=== PATIENT | female | born 1995 | race Hispanic/Latino ===

== ENCOUNTER 2021-04-15 20:12 | Outpatient (CLI) | payer OTHER, SELFPAY ==
[2021-04-15 21:45] VITALS: PULSE 98; O2SAT 100
[2021-04-15 21:47] VITALS: BP 106/60; PULSE 95; TEMP 36.9
[2021-04-15 22:22] LABS: ROM Internal Control Test YES-OK TO RESULT pt. (Internal QC); ROM Patient Test Negative (Negative)
[2021-04-15 23:25] LABS: Color, Urine Yellow (Yellow); Glucose, Dipstick Normal (Normal); Ketone-Dipstick Negative (Negative); Leukocyte Esterase-Dipstick 500 /ul (Negative); Nitrite-Dipstick Negative (Negative); Occult Blood-Urine 10 /ul (Negative); Protein-Dipstick Negative (Negative); Urine Bilirubin Dipstick Negative (Negative); Urine Clarity Cloudy (Clear); Urine Urobilinogen Normal (Normal); Urine pH 6.5 (5.0 - 8.0)
[2021-04-15 23:30] VITALS: BMI 22.0
--- NOTE | 2021-04-15 23:53 | OB.TRI.NOTE ---
HPI - General HPI Narrative NOHEMYKRISTEN VILLAGOMEZ, is a 26 F who presents with c/o leaking of fluid PFSH PFSH Home Medications ferrous sulfate 325 mg PO BID 04/15/21 [History Last Taken Unknown] [id number] [] 1 tab PO DAILY 04/15/21 [History Last Taken Unknown] Allergy/AdvReac Type Severity Reaction Status Date / Time No Known Allergies Allergy Verified 04/15/21 22:05 NST FHR Rate Baby A Baseline: 145 Variability:: Moderate Accelerations:: 15 x 15 Decelerations:: None NST Reactive:: Yes FHR Category:: Category I Uterine Activity:: 0/10 Assessment & Plan (1) : QUALIFIERS: Weeks of gestation: 29 weeks Qualified Code(s): Z3A.29 - 29 weeks gestation of PLAN: 29.6 wga by stated VIMAL 06/25/21 ROM plus negative No evidence of labor d/c home
== END 2021-04-15 23:15 | disposition home or self-care (01) ==
LOC: WPOUT 21:31 → WP 22:12
PROVIDERS: Visit Provider Obstetrics & Gynecology
DX: O47.03 False labor before 37 completed weeks of gestation, third trimester (principal); Z3A.29 29 weeks gestation of pregnancy
CPT/HCPCS: 59025; 59050; 81002; 84112; 87086; 87088; 99218; G0378

== ENCOUNTER 2021-04-21 20:31 | Observation (INO) | payer MEDICAID, SELFPAY ==
[2021-04-21] VITALS (7 sets, daily range): BP systolic 95–100; BP diastolic 53–66; PULSE 83–113; TEMP 36.7–37; O2SAT 97–100; BMI 26.3
[2021-04-21 14:56] LABS: ROM Internal Control Test YES-OK TO RESULT pt. (Internal QC); ROM Patient Test Negative (Negative)
[2021-04-21 15:52] LABS: Absolute Lymphocyte Count 1.58 X10^3/uL (0.83-4.51); Absolute Neutrophil Count 11.4 X10^3/uL (2.0-7.7); Basophil# 0.03 X10^3/uL; Basophil% 0.2 % (0-1); Eosinophil# 0.24 X10^3/uL; Eosinophils% 1.7 % (0-5); Hematocrit 32.1 % (37-47); Hemoglobin 10.6 g/dL (12.0-15.0); Lymphocyte # 1.58 X10^3/ul (0.83-4.51); Lymphocyte % 10.9 % (19-41); Mean Corpuscular Hgb 27.2 pg (27.0-32.0); Mean Corpuscular Volume 82.3 fL (81-99); Mean Platelet Vol. 10.2 fl (6.2-12.0); Monocyte# 1.21 X10^3/uL; Monocyte% 8.3 % (0-10); NRBC Flagged by Analyzer 0 % (0-5); Neutrophil # 11.35 X10^3/uL (2.7-7.7); Neutrophil % 78.1 % (47-70); Platelet Count 270 K/mm3 (150-450); RBC Distribution Width CV 12.9 % (11.6-14.6); RBC Distribution Width SD 38.1 fl (35.1-43.9); White Blood Count 14.5 K/mm3 (4.4-11.0)
[2021-04-21 15:53] LABS: Color, Urine Yellow (Yellow); Glucose, Dipstick Normal (Normal); Ketone-Dipstick Negative (Negative); Leukocyte Esterase-Dipstick 500 /ul (Negative); Nitrite-Dipstick Negative (Negative); Occult Blood-Urine 250 /ul (Negative); Protein-Dipstick 100 mg/dl (Negative); Specific Gravity, Urine 1.015 (1.002-1.030); Urine Bilirubin Dipstick Negative (Negative); Urine Clarity Turbid (Clear); Urine Urobilinogen Normal (Normal)
[2021-04-21] MEDS: Acetaminophen 500 MG Tablet 1000 MG PO (15:56)
[2021-04-21 16:13] LABS: ALB/GLOB Ratio 0.6 RATIO (0.9-2.4); AST(SGOT) 127 U/L (15-37); Alanine Aminotransfer ALT/SGPT 243 U/L (13-56); Albumin, Serum 2.8 g/dL (3.2-5.0); Alkaline Phosphatase 183 U/L (45-117); Anion Gap 8 (5-15); BUN 7 mg/dL (7-18); BUN/Creat Ratio 19.5 RATIO (10-20); Calcium,Total 8.9 mg/dL (8.5-10.1); Chloride 105 mmol/L (98-107); Creatinine, Serum 0.36 mg/dL (0.55-1.02); EST Glomerular Filtration Rate 236 mL/min (>60); Est Glom Filt Rate - Afr Amer 285 mL/min (>60); Estimated Creatinine Clearance 225.58 ml/min; Globulin 4.4 g/dL (2.2-4.2); Glucose 81 mg/dL (74-106); Potassium 3.7 mmol/L (3.5-5.1); Protein, Total 7.2 g/dL (6.4-8.2); Sodium Level 136 mmol/L (136-145)
--- NOTE | 2021-04-21 16:46 | US_ITS ---
STUDY: SECOND AND THIRD TRIMESTER OBSTETRICAL ULTRASOUND - LIMITED REASON FOR EXAM: Female, 26 years old 30.5 WEEKS GESTATION RT FLANK PAIN -- GROWTH AND ANATOMY -per iban, RN no anatomy LMP: 09/18/2020. PRIOR ULTRASOUND: None. TECHNIQUE: Transabdominal. TECHNICAL QUALITY: Adequate. FINDINGS: There is a single intrauterine fetus. The fetus is in a breech presentation. There is demonstrated cardiac activity with a heart rate of 137 bpm. There is a normal amniotic fluid volume. The largest amniotic fluid pocket measures 5.4 cm. The amniotic fluid index (UMU) is .9 cm. The placenta is fundal and posterior. The cervix measures 2.8 cm in length. 3 vessel cord is documented. BIOMETRY: biometry demonstrates biparietal diameter corresponding to estimated gestational age of 35 weeks 2 days, head circumference corresponding to 32 weeks 6 days, abdominal circumference to 30 weeks 5 days, and femur length to 31 weeks 4 days. Mean sonographic estimated gestational age is 32 weeks 4 days with estimated date of delivery 06/12/2021. Estimated weight: 1837 grams, +/- 276 grams. US/OB Limited With Biometrics IMPRESSION: Single live intrauterine gestation with EGA 32 weeks 4 days. Electronically Signed: Jovanna Nguyen MD at 21:20 EDT Tel , Service support ,
[2021-04-21 16:55] LABS: AST(SGOT) 128 U/L (15-37); Alanine Aminotransfer ALT/SGPT 238 U/L (13-56); Albumin, Serum 2.8 g/dL (3.2-5.0); Alkaline Phosphatase 184 U/L (45-117); Amylase 45 U/L (25-115); Globulin 4.5 g/dL (2.2-4.2); LDH 203 U/L (84-246); Lipase 97 U/L (73-393); Protein, Total 7.3 g/dL (6.4-8.2); Uric Acid 2.6 mg/dL (2.6-6.0)
--- NOTE | 2021-04-21 17:25 | US_ITS ---
STUDY: ABDOMINAL ULTRASOUND - RIGHT UPPER QUADRANT REASON FOR VISIT: Female, 26 years old RIGHT FLANK PAIN -- 30.5 WEEKS GESTATION -- elevated liver enzymes TECHNIQUE: Ultrasound evaluation of the right upper quadrant was performed with real-time and static ag-scale imaging. TECHNICAL QUALITY: Adequate. COMPARISON: None. FINDINGS: Liver: The liver measures 15.7 cm. There is normal echogenicity of the liver. The bile ducts are within normal limits. There is hepatic color flow. The direction of portal flow is hepatopetal. There is no demonstrated mass lesion. Gallbladder: Distended gallbladder. The gallbladder wall measures 2 mm. There is a negative sonographic Rodriguez''s sign. There is no pericholecystic fluid. There is biliary sludge within the gallbladder. Common Bile Duct (C.B.D.): The common bile duct measures 4 mm. Pancreas: Normal size of the head, body and tail of the pancreas. There is normal echogenicity of the pancreas. There is no demonstrated pancreatic mass or cyst. Right Kidney: Normal size of the right kidney. The right kidney measures 11 x 5.1 x 6.1 cm. Normal renal cortex. The right cortex measures 1 cm. There is no demonstrated renal mass or cyst. There is moderate hydronephrosis of the right kidney. US/Abdomen Limited IMPRESSION: 1. Biliary sludge. No evidence of acute cholecystitis. 2. Right hydronephrosis, consistent with third trimester gestation. However, a distal stone cannot be excluded. Electronically Signed: Jovanna Nguyen MD at 21:23 EDT Tel , Service support ,
--- NOTE | 2021-04-21 20:33 | HP.PCM.OB_ITS ---
HPI - General HPI Narrative NOHEMYKRISTEN VILLAGOMEZ, is a 26 F who presents with right sided abdominal & back pain. It started 5 days ago and became worse today which prompted her visit. The pain is intermittent. Patient also reports some nausea with emesis x2. Overall she is tolerating PO. Denies VB/LOF/ctxs. Reports good FM. Maternal Data Information Final VIMAL: 06/25/21 Gestational age: 30&5 PFSH PFSH Home Medications ferrous sulfate 325 mg PO BID 04/15/21 [History Last Taken Unknown] [id number] [] 1 tab PO DAILY 04/15/21 [History Last Taken Unknown] Allergy/AdvReac Type Severity Reaction Status Date / Time No Known Allergies Allergy Verified 04/15/21 22:05 History Addt'l History: care in [facility] NST FHR Rate Baby A Baseline: 145 Variability:: Moderate Accelerations:: 15 x 15 Decelerations:: Variable Uterine Activity:: Irregular Vital Signs Vital Signs Vital Signs: 04/21/21 14:54 04/21/21 14:55 04/21/21 16:11 Temperature 98.1 F 98.0 F Temperature Source Temporal Pulse Rate 113 H 89 Blood Pressure 100/66 99/63 BP Systolic 100 99 BP Diastolic 66 63 Pulse Ox 100 04/21/21 19:45 04/21/21 19:46 Temperature 98.1 F Temperature Source Temporal Pulse Rate 88 Blood Pressure 97/54 L BP Systolic 97 BP Diastolic 54 Pulse Ox 100 Weight Weight: 130 lb 11.746 oz Body Mass Index (BMI) 26.3 Physical Exam Const alert, oriented x3 and no apparent distress HEENT normocephalic Head and Scalp: atraumatic Eyes PERRL Chest inspection of chest normal and palpation of chest normal Resp normal respiratory effort GI soft to palpation, non-tender and non-distended Back/Spine no CVA tenderness Back/Spine Narrative: patient points to mid right back as area that can be painful Labs Labs Labs: Hct 32.1 % (37-47) L Hgb 10.6 g/dL (12.0-15.0) L Obstetrics US Assessment & Plan (1) Abdominal pain affecting : COMMENT: @ 30&5 PLAN: Abdominal pain - preliminary RUQ US read shows gallbladder sludge - await final read. Gallbladder disease could explain the elevated LFT's. LFT's - plan to repeat in am. BP normal. Platelets & LDH normal thus no evidence of HELLP. FWB - reassuring EFM and normal US on prelim report. Plan for overnight observation and repeat evaluation in the morning. Plan of care discussed with patient & all questions answered.
[2021-04-21] MEDS: Acetaminophen 325 MG Tablet 650 MG PO (23:43)
--- NOTE | 2021-04-22 01:49 | NURSING ---
pt resting in bed, woke up after hearing RN enter room, states doing okay at this time.
[2021-04-22 04:03] VITALS: BP 88/50; PULSE 93; TEMP 36.8; O2SAT 99
--- NOTE | 2021-04-22 06:09 | PN.OBGYN_ITS ---
Subjective Subjective Doing well this morning, decreased pain. Good movement. Denies headache, visual changes, chest pain, shortness of breath, vaginal bleeding or leakage of fluid. Objective Data Objective Data Vital Signs: Vital Signs Temp Pulse BP Pulse Ox 98.2 F 93 88/50 L 99 04/22/21 04:03 04/22/21 04:03 04/22/21 04:03 04/22/21 04:03 Weight: 130 lb 11.746 oz Body Mass Index (BMI) 26.3 Lab / Micro Data Result Diagrams: 04/21/21 15:40 04/21/21 15:40 Labs: Laboratory Results - last 24 hr 04/21/21 14:30: Vag Amniotic Fld Detect Negative 04/21/21 15:30: Urine Color Yellow, Urine Clarity Turbid, Urine pH 7.0, Ur Speci fic [place]ike 1.015, Urine Protein 100 H, Urine Glucose (UA) Normal, Urine Ketones Negative, Urine Occult Blood 250 H, Urine Nitrite Negative, Urine Bilirubin Negative, Urine Urobilinogen Normal, Ur Leukocyte Esterase 500 H 04/21/21 15:40: WBC 14.5 H, RBC 3.90 L, Hgb 10.6 L, Hct 32.1 L, MCV 82.3, MCH 27.2, MCHC 33.0, RDW Std Deviation 38.1, RDW Coeff of Lynsey 12.9, Plt Count 270, MPV 10.2, Immature Gran % (Auto) 0.800, Neut % (Auto) 78.1 H, Lymph % (Auto) 10.9 L, Hickman % (Auto) 8.3, Eos % (Auto) 1.7, Baso % (Auto) 0.2, Absolute Neuts (auto) 11.4 H, Absolute Lymphs (auto) 1.58, Nucleated RBC % 0 04/21/21 15:40: Sodium 136, Potassium 3.7, Chloride 105, Carbon Dioxide 23.0, Anion Gap 8, BUN 7, Creatinine 0.36 L, Estim Creat Clear Calc 225.58, Est GFR (MDRD) Af Amer 285, Est GFR (MDRD) Non-Af 236, BUN/Creatinine Ratio 19.5, Glucose 81, Calcium 8.9, Total Bilirubin 0.40, AST 127 H, ALT 243 H, Alkaline Phosphatase 183 H, Total Protein 7.2, Albumin 2.8 L, Globulin 4.4 H, Albumin/Globulin Ratio 0.6 L 04/21/21 15:40: Uric Acid 2.6, Total Bilirubin 0.40, Direct Bilirubin 0.20, AST 128 H, ALT 238 H, Alkaline Phosphatase 184 H, Lactate Dehydrogenase 203, Total Protein 7.3, Albumin 2.8 L, Globulin 4.5 H, Amylase 45, Lipase 97 Radiography Diagnostic Testing: Radiology Impression Obstetrics Ultrasound 04/21/21 16:46 IMPRESSION: Single live intrauterine gestation with EGA 32 weeks 4 days. Electronically Signed: Jovanna Nguyen MD at 21:20 EDT Tel , Service support , Abdomen Ultrasound 04/21/21 17:25 IMPRESSION: 1. Biliary sludge. No evidence of acute cholecystitis. 2. Right hydronephrosis, consistent with third trimester gestation. However, a distal stone cannot be excluded. Electronically Signed: Jovanna Nguyen MD at 21:23 EDT Tel , Service support , ROS Constitutional Constitutional: Reports systems reviewed and no addt'l complaints, except as documented; Denies headache(s) Eyes Eyes: Denies acute decrease in peripheral vision, blurry vision or change in vision ENT HEENT: Reports systems reviewed and no addt'l complaints, except as documented Cardiovascular Cardiovascular: Denies chest pain or dizziness Respiratory/Chest Respiratory/Chest: Denies cough, dyspnea, dyspnea on exertion, shortness of breath at rest or shortness of breath with exertion Gastrointestinal Gastrointestinal: Denies abdominal pain, diarrhea, nausea or vomiting Genitourinary Genitourinary: Denies abdominal discomfort or movement Musculoskeletal Musculoskeletal: Denies limited range of motion Integumentary Integumentary: Reports systems reviewed and no addt'l complaints, except as documented Neurologic Neurologic: Reports systems reviewed and no addt'l complaints, except as documented Psychiatric Psychiatric: Reports systems reviewed and no addt'l complaints, except as documented Endocrine Endocrinology: Reports systems reviewed and no addt'l complaints, except as documented Hematologic/Lymphatic Hematologic/Lymphatic: Reports systems reviewed and no addt'l complaints, except as documented Allergic/Immunologic Allergic/Immunologic: Reports systems reviewed and no addt'l complaints, except as documented Physical Exam Const alert and oriented x3 General Appearance: cooperative Orientation / Consciousness: awake, oriented to person, oriented to place and o riented to time Exam Limitations: no limitations HEENT normocephalic Head and Scalp: normal to inspection, normocephalic and atraumatic Face and Sinus: normal facial exam Eyes General Eye: normal appearance of both eyes Neck full ROM Chest Chest: symmetrical chest wall rise Resp normal respiratory effort and normal air movement Auscultation: clear to auscultation bilaterally Cardio regular rate, regular rhythm, S1 normal heart sound, S2 normal heart sound, no murmurs, no rub, no gallops and no clicks GI normal to inspection, nondistended, normoactive bowel sounds and non-tender appearance of the vagina normal Bladder / Kidney Exam: no CVA tenderness Back/Spine normal ROM Extremity normal to inspection and full ROM Skin no rashes or lesions noted Neuro oriented x3, CN's II-XII intact bilaterally and moves all extremities Sensorium / Orientation: awake, alert and oriented to person Motor Exam: clonus absent Deep Tendon Reflexes: Rt Patellar (L4): 2+ and Lt Patellar (L4): 2+ NST FHR Rate Baby A Baseline: 150 Variability:: Moderate Accelerations:: 15 x 15 Decelerations:: None NST Reactive:: Yes Uterine Activity:: None Assessment & Plan (1) Abdominal pain affecting : COMMENT: @ 30&5 PLAN: RUQ US read shows gallbladder sludge. Gallbladder disease could explain the elevated LFT's. Awaiting labs this morning prior to discharge. Reveiwed with patient notifying office in [place] of visit here and would recommend follow up this week. Can provide with number and we can send visit. LFT's repeat this am. BP normal. NST this am reactive Will plan for discharge home today pending labs Advance diet to tolerate
[2021-04-22 07:04] LABS: Absolute Lymphocyte Count 1.74 X10^3/uL (0.83-4.51); Absolute Neutrophil Count 6.6 X10^3/uL (2.0-7.7); Basophil# 0.05 X10^3/uL; Basophil% 0.5 % (0-1); Eosinophil# 0.32 X10^3/uL; Eosinophils% 3.2 % (0-5); Hematocrit 29.7 % (37-47); Hemoglobin 9.8 g/dL (12.0-15.0); Lymphocyte # 1.74 X10^3/ul (0.83-4.51); Lymphocyte % 17.6 % (19-41); Mean Corpuscular Hgb 27.1 pg (27.0-32.0); Mean Corpuscular Volume 82.3 fL (81-99); Mean Platelet Vol. 10.1 fl (6.2-12.0); Monocyte# 1.06 X10^3/uL; Monocyte% 10.7 % (0-10); NRBC Flagged by Analyzer 0 % (0-5); Neutrophil % 66.9 % (47-70); Platelet Count 259 K/mm3 (150-450); RBC Distribution Width CV 12.8 % (11.6-14.6); RBC Distribution Width SD 38.4 fl (35.1-43.9); Red Blood Count 3.61 M/mm3 (4.2-5.4); White Blood Count 9.9 K/mm3 (4.4-11.0)
[2021-04-22 07:28] LABS: AST(SGOT) 129 U/L (15-37); Alanine Aminotransfer ALT/SGPT 231 U/L (13-56); Albumin, Serum 2.5 g/dL (3.2-5.0); Alkaline Phosphatase 171 U/L (45-117); Bilirubin, Direct 0.14 mg/dL (0.00-0.30); Globulin 4.3 g/dL (2.2-4.2); Protein, Total 6.8 g/dL (6.4-8.2)
[2021-04-22 07:38] VITALS: TEMP 37.1
[2021-04-22 07:39] VITALS: BP 96/55; PULSE 79
[2021-04-23 10:38] VITALS: BP 142/95; PULSE 68
== END 2021-04-22 08:13 | disposition home or self-care (01) ==
LOC: WPOUT 04-23 07:51 → WP 04-23 07:51
PROVIDERS: Obstetrics & Gynecology; Admitting Provider Advanced Practice Midwife; Visit Provider Advanced Practice Midwife
DX: O99.613 Diseases of the digestive system complicating pregnancy, third trimester (principal); K92.89 Other specified diseases of the digestive system; Z3A.30 30 weeks gestation of pregnancy; K82.8 Other specified diseases of gallbladder
CPT/HCPCS: 36415; 59025; 59050; 76705; 76816; 80053; 80076; 81002; 82150; 83615; 83690; 84112; 84550; 85025; 99218; G0378